=== PATIENT | male | born 1980 | race Two or more races ===

== ENCOUNTER 2016-06-29 06:32 | Inpatient (IN) | payer MEDICAID ==
[~2016-06-29] VITALS: Ht 188 cm; Wt 88.5 kg
[2016-06-29] MEDS ORDERED: LIDOCAINE 2% JEL UROJET 10 ML MM ONE ×3 (06:38→07:00)
--- NOTE | 2016-06-29 06:40 | NUR ---
To bed 7 a 36 yo male bibra and lapd with c/o overdose. Per ems report, mom called 911 cause patient was banging on the windows, shouting, unable to be directed. Per mom, patient took meth and 5 pills of her carbamazepine 300mg tablets. Upon arrival, patient is lethargic, vomiting, no sob. Breathing even and unlabored. NSR on tele. VSS. Skin warm and dry. Safety measures initiated. Gowned. Placed on sign manufacturer. Awaiting for er md.
--- NOTE | 2016-06-29 06:45 | NUR ---
started a saline lock on the right ac g16, blood drawn and sent to lab.
[2016-06-29] MEDS ORDERED: ONDANSETRON HCL/PF 4 MG/2 ML VIAL ONE (06:47)
[2016-06-29 06:57] LABS: BASOPHILS % (AUTO) 0.6 % (0.0-2.0); EOSINOPHILS # (AUTO) 0.1 /CMM (0.0-0.7); EOSINOPHILS % (AUTO) 1.2 % (0.0-6.0); HEMATOCRIT 46 % (39-51); HEMOGLOBIN 15.6 g/dL (13.5-17.5); LYMPHOCYTES # (AUTO) 1.9 /CMM (0.8-4.8); MEAN CORPUSCULAR HEMOGLOBIN 28 PG (26.0-33.0); MEAN CORPUSCULAR HGB CONC 34 g/dl (31.0-36.0); MEAN CORPUSCULAR VOLUME 82 fL (80-96); MONOCYTES # (AUTO) 0.3 /CMM (0.1-1.30); MONOCYTES % (AUTO) 4.4 % (2.0-12.0); NEUTROPHILS # (AUTO) 4.6 /CMM (1.8-8.9); NEUTROPHILS % (AUTO) 66.8 % (43.0-81.0); PLATELET COUNT (AUTO) 276 /CMM (150-450); RDW COEFFICIENT OF VARIATION 12.7 (11.5-15.0); RED BLOOD CELL COUNT(AUTO) 5.56 MIL/uL (4.5-6.0)
[2016-06-29] MEDS ORDERED: ONDANSETRON HCL/PF - ER 4 MG/2 ML VIAL IV ONE (07:00)
--- NOTE | 2016-06-29 07:20 | NUR ---
Urine sample collected via straight cath, 200cc orange colored clear urine noted. Called lab for pickup.
[2016-06-29 07:35] LABS: ALANINE AMINOTRANSFERASE 19 U/L (12-78); ALBUMIN 4.2 g/dL (3.4-5.0); ALCOHOL, BLOOD 179 mg/dL (0-0); ALKALINE PHOSPHATASE 68 U/L (46-116); ASPARTATE AMINOTRANSFERASE 14 U/L (15-37); BILIRUBIN,DIRECT 0.1 mg/dL (0.0-0.2); BILIRUBIN,TOTAL 0.6 mg/dL (0.2-1.0); CALCIUM, SERUM 8.6 mg/dL (8.5-10.1); CARBON DIOXIDE 22 mmol/L (21-32); CHLORIDE 107 mmol/L (98-107); CREATININE 1.2 mg/dL (0.6-1.3); GFR 69 mL/min (>60); GLUCOSE 102 mg/dL (74-106); POTASSIUM 3.4 mmol/L (3.5-5.1); SODIUM SERUM 144 mmol/L (136-145); TOTAL PROTEIN, SERUM 7.3 g/dL (6.4-8.2); UREA NITROGEN, BLOOD 16 mg/dL (7-18)
[2016-06-29 07:36] LABS: APPEARANCE,URINE SL CLOUDY (CLEAR); BILIRUBIN,URINE NEGATIVE (NEGATIVE); BLOOD, URINE 3+ Ery/uL (NEGATIVE); COLOR,URINE YELLOW (YELLOW); KETONES,URINE NEGATIVE (NEGATIVE); LEUKOCYTE ESTERASE ,URINE NEGATIVE (NEGATIVE); NITRITE, URINE NEGATIVE (NEGATIVE); PROTEIN,URINE 2+ mg/dl (NEGATIVE); UGLUCOSE NEGATIVE (NEGATIVE); UROBILINOGEN,URINE 0.2 EU/dL (0.2)
[2016-06-29 07:37] LABS: ACETAMINOPHEN < 10 ug/ml (10-30); SALICYLATE 0.8 mg/dL (2.8-20.0)
[2016-06-29 07:42] LABS: ADD URINE CULTURE NO; BACTERIA,URINE None seen /HPF (None Seen); FINE GRANULAR CASTS,URINE OCC /LPF (None Seen); MUCUS,URINE Few /LPF (None Seen); RBC,URINE 21-50 /HPF (0-2); URINE AMORPHOUS URATE Few /HPF (None Seen); WBC,URINE 0-2 /HPF (0-3)
[2016-06-29 07:48] LABS: PHENCYCLIDINE SCREEN,URINE NEGATIVE (NEGATIVE)
[2016-06-29 07:50] LABS: CANNABINOID, URINE POSITIVE (NEGATIVE)
--- NOTE | 2016-06-29 08:16 | NUR ---
CALLED POISON CONTROL REPORTED OVERDOSE OF CARBAMAZEPINE. PER POISON CONTROL RECHECK CARBAMAZEPINE RATE AFTER 3-4 HOURS SINCE ITS SLOW EFFECT. IF THERE IS SEIZURE TREAT WITH BENZODIAZEPINE. IF QRS 120 TREAT WITH BICARBONATE. UPDATED MD MADE AWARE.
[2016-06-29] MEDS ORDERED: ACETAMINOPHEN ES 500 MG TABLET ONE (08:24)
[2016-06-29] MEDS ORDERED: ACETAMINOPHEN ES 500 MG TABLET PO ONE (08:30)
--- NOTE | 2016-06-29 08:32 | NUR ---
PT AROUSABLE BUT LETHARGIC . NOT ABLE TO GIVE PO TYLENOL. MADE AWARE.
--- NOTE | 2016-06-29 11:24 | NUR ---
SORAIDA FROM POISON CONTROL CALLED BACK . UPDATED ON PATIENTS CONDITION. WANTS TO RECHECK CARBAMAZEPINE LEVEL IN 3-4 HOURS. CURRENT LEVEL 6.4 Addendum: 06/29/16 at 1124 by NICOLASA MD KEE AWARE
[2016-06-29] MEDS ORDERED: ZOLPIDEM TARTRATE 5 MG TABLET PO PRN (14:30)
[2016-06-29] MEDS ORDERED: HYDROCODONE/APAP 5/325MG 1 EACH TABLET PO PRN (14:30)
[2016-06-29] MEDS ORDERED: IV NS 0.9% 1,000 ML IV ONE (14:30)
[2016-06-29] MEDS ORDERED: MAG HYDROX/AL HYDROX/SIMETH 30 ML UDC PO PRN (14:30)
[2016-06-29] MEDS ORDERED: Z GUARD REMEDY 2 OZ OINT TP PRN (14:30)
[2016-06-29] MEDS ORDERED: ONDANSETRON HCL/PF 4 MG/2 ML VIAL IVP PRN (14:30)
[2016-06-29] MEDS ORDERED: MAGNESIUM HYDROXIDE 30 ML UDC PO PRN (14:30)
[2016-06-29] MEDS ORDERED: ACETAMINOPHEN 325 MG TABLET PO PRN (14:30)
--- NOTE | 2016-06-29 14:36 | NUR ---
PT GOING TO TELE ROOM 310-1
--- NOTE | 2016-06-29 14:56 | NUR ---
GAVE REPORT TO SEAN JARAMILLOFLANGER ROOM 310-1 . PSYCH EVAL AT BEDSIDE.
--- NOTE | 2016-06-29 15:49 | NUR ---
INFORMED NURSING SUP. OF 5150 HOLD, SHE SAID SHE HAS A SITTER
[2016-06-29] MEDS ORDERED: IV SET PRIMARY PUMP SET 1 EA INFUS.SET MC ONE (16:01)
[2016-06-29] MEDS ORDERED: SET RED CAP 1 EA INFUS.SET MC ONE (16:02)
[2016-06-29] MEDS ORDERED: SECONDARY IV SET 1 EA INFUS.SET MC ONE (16:02)
[2016-06-29] MEDS: POTASSIUM CL. PREMIX PERIPHER. 50 ML IV SCH ×2 (16:11→17:40)
--- NOTE | 2016-06-29 16:45 | NUR ---
RN NOTES ADMISSION RECEIVED REPORT FROM RN. RECEIVED PATIENT TO TELEMETRY AT 1600. PATIENT IS SLEEPY BUT AWAKEN TO CALLING HIS NAME/ PATIENT IS ORIENTED TO NAME, TIME AND PLACE. RECEIVED NEW ORDERS AND DIET FROM DR LANDIN. ORDERS CARRIED OUT. PICTURE OF RIGHT HAND WAS TAKEN AND PLACED IN THE CHART. IV SITE IS POTENT AND INTACT. NO SIGNS OR SYMPTOMS OF DISTRESS. PATIENT DENIED PAIN. VITAL SIGNS ARE STABLE: BLOOD PRESSURE 118/77 AND HR 86. PATIENT IS PLACED ON 5150 DANGER TO HIMSELF, 5150 STARTED 06/30/16 AT 1530 AND WILL ON 07/02/2016 AT 1530. PSYCH CONSULT IS ON THE CASE. 1:1 SITTER. WILL CONTINUE TO ASSESS AND MONITOR PATIENT THROUGH OUT MY SHIFT.
--- NOTE | 2016-06-29 18:37 | NUR ---
RN CLOSING NOTES PATIENT IS AWAKE AND ORIENTED TO NAME, TIME AND PLACE. IV SITE IS POTENT AND INTACT, NS AT 125ML/HR IS CURRENTLY RUNNING. NO SIGNS OR SYMPTOMS OF DISTRESS. PATIENT DENIED PAIN. VITAL SIGNS ARE STABLE. PATIENT IS ON 5150 DANGER TO HIMSELF, 5150 STARTED 06/30/16 AT 1530 AND WILL ON 07/02/2016 AT 1530. PSYCH CONSULT IS ON THE CASE. 1:1 SITTER. BED IS IN LOW POSITION, LOCKED AND TWO SIDE RAILS ARE UP. WILL ENDORSE TO KATELIN SHIFT NURSE.
--- NOTE | 2016-06-29 19:30 | NUR ---
AUTOMATIC BRINE MIXER OPERATOR INITIAL NOTES: RECEIVED REPORT FROM DAY RN JO. PT ON BED, SLEEPING, AROUSES TO TACTILE STIMULI, ON 2L VIA NC, RESPIRATION EVEN AND UNLABORED. ON SINUS RHYTHM HR 86. 1:1 SITTER AT BED SIDE. PT ON 5150 HOLD ON 07/02/16 AT 1530. PT DENIES ANY PAIN OR DISCOMFORT, DENIES ANY PLAN OF HURTING HIMSELF AT THIS TIME, NO ACTIVE PLAN STATED. RIGHT AC IV ACCESS PATENT AND FLUSHING WELL, INFUSING WITH NS AT 125 ML/HR. SAFETY PRECAUTIONS FOR FALL INITIATED, CALL LIGHT IN REACH, WILL CONTINUE TO MONITOR
[2016-06-29 19:36] VITALS: BP 126/72
[2016-06-29 20:00] VITALS: BP 126/72
--- NOTE | 2016-06-29 21:29 | NUR ---
SCIENCE INSTRUCTOR NOTES: RECEIVED CALL FROM POISON CONTROL CENTER, HOWEVER LINE/FRAMING SPECIALIST SEEMS BAD THAT IT CUT THE CALL, INFORMED NATURAL GAS INSPECTOR, AWAITING FOR POISON CENTER TO CALL BACK
[2016-06-30] VITALS (7 sets, daily range): BP systolic 108–126; BP diastolic 53–81
[2016-06-30 06:24] LABS: BASOPHILS % (AUTO) 0.7 % (0.0-2.0); EOSINOPHILS # (AUTO) 0.2 /CMM (0.0-0.7); EOSINOPHILS % (AUTO) 2.2 % (0.0-6.0); HEMATOCRIT 41 % (39-51); HEMOGLOBIN 13.9 g/dL (13.5-17.5); LYMPHOCYTES # (AUTO) 2.5 /CMM (0.8-4.8); LYMPHOCYTES % (AUTO) 35.3 % (20.0-44.0); MEAN CORPUSCULAR HEMOGLOBIN 29 PG (26.0-33.0); MEAN CORPUSCULAR HGB CONC 34 g/dl (31.0-36.0); MEAN CORPUSCULAR VOLUME 83 fL (80-96); MONOCYTES # (AUTO) 0.4 /CMM (0.1-1.30); MONOCYTES % (AUTO) 6.2 % (2.0-12.0); NEUTROPHILS # (AUTO) 3.9 /CMM (1.8-8.9); NEUTROPHILS % (AUTO) 55.6 % (43.0-81.0); PLATELET COUNT (AUTO) 239 /CMM (150-450); RDW COEFFICIENT OF VARIATION 12.8 (11.5-15.0); RED BLOOD CELL COUNT(AUTO) 4.89 MIL/uL (4.5-6.0); WHITE BLOOD COUNT (AUTO) 7.1 K/uL (4.3-11.0)
--- NOTE | 2016-06-30 06:45 | NUR ---
telecommunications line installer closing notes: pt on bed, sleeping, arouses to tactile stimuli, pt remains passive and isolative hence calm, 1:1 sitter at bed side, no sob noted, remains on 2l via nc. on sinus rhythm hr 68. pt denies any plan of hurting himself, most of the time he's sleeping. iv access remains patent and flushing well, on hl. vs remains stable, needs attended. safety precaution for fall remains engaged, call light in reach. will endorse to day rn for juan pablo.
[2016-06-30 06:52] LABS: CREATININE 0.9 mg/dL (0.6-1.3); MAGNESIUM 1.9 mg/dL (1.8-2.4); PHOSPHORUS 3.7 mg/dL (2.5-4.9); POTASSIUM 3.8 mmol/L (3.5-5.1)
--- NOTE | 2016-06-30 07:30 | NUR ---
tele manager contact: initial assessment received pt in bed asleep, but easily arousable. pt remains on 5150 hold. sitter at bedside. no s/s of discomfort. call light within reach. will continue to monitor.
--- NOTE | 2016-06-30 08:00 | NUR ---
tele director of field service: notes lab called re: tegretol level=15.0. dr. redmond here and aware.
--- NOTE | 2016-06-30 09:00 | NUR ---
m/s revenue inspector: md visit tele removed as ordered. pt awaken, seen and examined by dr. redmond with verbal order to do tegretol level every 4 hours and start ivf ns at 125ml/hr. order carried out and acknowledged. breakfast served. md aware of tegretol level today= 15.0.
[2016-06-30] MEDS ORDERED: IV NS 0.9% 1,000 ML BAG IV PRN (09:30)
[2016-06-30] MEDS ORDERED: IV SET PRIMARY PUMP SET 1 EA INFUS.SET MC ONE (10:07)
[2016-06-30] MEDS: IV NS 0.9% 1,000 ML IV PRN (10:12)
--- NOTE | 2016-06-30 11:00 | NUR ---
m/s wireless watcher: notes sounds asleep at this time. sitter at bedside. will monitor.
--- NOTE | 2016-06-30 12:00 | NUR ---
m/s digital camera technician: notes poison control called and spoke to manny (miguel) and updated tegretol level and pt condition.
--- NOTE | 2016-06-30 13:45 | NUR ---
m/s customs verifier: psych f/u seen by dr. roberts with order to d'c 5150. chris barksdale made aware, spoke to juan pablo. pt needs to sign voluntary per psychiatrist.
--- NOTE | 2016-06-30 14:00 | NUR ---
m/s weekend caregiver: notes pt awaken for blood draw. pt denies si/hi at this time. informed pt that hold has been discontinued. pt will sign voluntary as stated. awaiting form from geropsych unit. continue on ivf, infusing well. will continue to monitor.
--- NOTE | 2016-06-30 14:10 | NUR ---
m/s propagation worker: notes cathie (social media content specialist) at bedside to get information. pt refused to be admitted to psych [facility] and will not sign voluntary. cn made aware. will continue to monitor.
--- NOTE | 2016-06-30 14:14 | NUR ---
[facility] Per crisis team report by RN Danielle, per Mother pt stating that he wanted "to " while banging on the windows with his fists (pt with multiple abrasions on both hands), pt also ingested "5 carbamazepine pills and took meth". Upon arrival pt with pressured speech and believed that people were after him. Pt was uncooperative with ED staff and refused to answer any questions with this documentation writer. Unable to contract for safety. Pt with hx of bipolar disorder. Pt. was placed on a 5150 hold for DTS. MAGEN met with pt. bedside. Pt's RN Damien was bedside as well. Pt. had his eyes closed throughout the entire assessment. Pt. was somewhat guarded and affect was blunted. Pt. lives at [address] [place] [address] in [place] with his parents. 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 Pt. drinks alcohol socially and uses methamphetamines every other day. Pt. has been using methamphetamines for the past two and a half years. Pt. has no history of drug treatment programs. Pt. denies psychiatric hospitalizations and states this was his first suicidal attempt. Pt. denied having any psychiatric illnesses, however the crisis team report states pt. has a history of Bipolar. Pt. is a cigarette smoker and smokes 2 to 4 cigarettes per day. Pt. is currently denying suicidal and homicidal ideations and visual/auditory hallucinations. Pt. would like to return back home upon discharge. Pt. declined drug and alcohol resources that were offered to him. Patient requesting no other social service needs at this time and social work professor will re-assess if necessary. MAGEN consulted with MELISSA Muniz who informed MAGEN that Dr. Ragsdale (psychiatrist) has discontinued the 5150 hold.
--- NOTE | 2016-06-30 15:25 | NUR ---
m/s photo lab specialist: notes report given to manny (rn) for continuity of care.
--- NOTE | 2016-06-30 16:00 | NUR ---
MS RN ON BED,NO DISTRESS NOTED.
--- NOTE | 2016-06-30 18:51 | NUR ---
ms rn on bed,no distress noted,all needs attended.
--- NOTE | 2016-06-30 19:30 | NUR ---
MS RN NOTE PATIENT STABLE. NO REPORTS OF PAIN OR DISTRESS AT THIS TIME. NO S/S OF SUICIDAL IDEATION. PATIENT RESTING COMFORTABLY IN BED. IV SITE TO RAC INTACT, WITH NO REDNESS OF SWELLING NOTED AT SITE. BED LOCKED AND IN LOWEST POSITIO. SIDE RAILS UP, CALL LIGHT WITHIN REACH. WILL CONTINUE TO MONITOR.
--- NOTE | 2016-06-30 22:03 | NUR ---
MS RN NOTE ENDORSED TO [facility] FOR EVE.
--- NOTE | 2016-06-30 22:28 | NUR ---
MS/RN NOTES RECEIVED REPORT FROM [facility]. RECEIVED PT. LYING IN BED. BREATHING EVEN AND UNLABORED ON ROOM AIR. NO SOB, RESPIRATORY DISTRESS OR COMPLAINTS OF PAIN. PT. EASILY AROUSABLE TO NAME. NO S/S OF SUICIDAL IDEATION. BED IN LOWEST POSITION, CALL LIGHT WITHIN REACH, WILL CONTINUE TO MONITOR.
[2016-07-01] MEDS: IV NS 0.9% 1,000 ML IV PRN ×2 (05:38→16:31)
--- NOTE | 2016-07-01 06:33 | NUR ---
MS/RN NOTES PT. LYING IN BED RESTING. BREATHING EVEN AND UNLABORED ON ROOM AIR. NO SOB, RESPIRATORY DISTRESS OR COMPLAINTS OF PAIN. NO S/S OF SUICIDAL IDEATION AT THIS TIME AND THROUGHOUT SHIFT. PT. WITH RIGHT AC 18 GAUGE PERIPHERAL IV PRESENT, PATENT AND INTACT ADMINISTERING TO PT. NS @ 125ML/HR. ALL PT. NEEDS MET. BED IN LOWEST POSITION, CALL LIGHT WITHIN REACH, WILL ENDORSE TO DAYSHIFT NURSE FOR CONTINUITY OF CARE.
[2016-07-01 06:52] LABS: CALCIUM, SERUM 8.3 mg/dL (8.5-10.1); CREATININE 0.9 mg/dL (0.6-1.3)
--- NOTE | 2016-07-01 07:21 | NUR ---
RN AM NOTES RECEIVED PATIENT AWAKE, ALERT AND ORIENTED X4. NO SUICIDAL THOUGHTS OR IDEATION AT THIS TIME. AMBULATORY, ABLE TO USE RESTROOM AND TRANSFER INDEPENDENTLY. INDEPENDENT FOR ADL'S. TOLERATING IV INFUSION WELL. WILL CONTINUE TO MONITOR.
[2016-07-01 08:00] VITALS: BP 107/74
[2016-07-01 08:14] LABS: CARBAMAZEPINE (TEGRETOL) 11.4 ug/ml (4-11.9)
--- NOTE | 2016-07-01 11:00 | NUR ---
POISON CONTROL CENTER CALLED FOR CARBAMAZEPINE LEVELS TO BE VERIFIED, VERIFIED MOST RECENT RESULT AT 11.1, TRENDING DOWN. PATIENT IN STABLE CONDITION. WILL CONTINUE TO MONITOR.
--- NOTE | 2016-07-01 15:20 | NUR ---
PATIENT REQUESTED TO BE TESTED FOR HIV AND HERPES BECAUSE HE HAS HAD AT LEAST 2 OR 3 QUESTIONABLE SEXUAL PARTNERS OVER THE PAST 5 YEARS AND MULTIPLE OTHER SEXUAL PARTNERS WHILE UNDER THE INFLUENCE OF DRUGS HE CANNOT REMEMBER. PATIENT STATES THAT HE HAS NOT BEEN TESTED IN A FEW YEARS. PATIENT DENIES IV DRUG USE. MD AWARE AND ORDERED TESTS. WILL CONTINUE TO MONITOR.
[2016-07-01 16:00] VITALS: BP 129/69
--- NOTE | 2016-07-01 18:14 | NUR ---
RN PM NOTES PATIENT RESTING IN BED, ASLEEP, BUT AROUSABLE. TOLERATED MEALS AND IV INFUSION WELL. NO SOB OR DISTRESS NOTED. DENIES PAIN. WILL ENDORSE TO NEXT SHIFT.
--- NOTE | 2016-07-01 19:27 | NUR ---
MS/RN OPENING NOTES RECEIVED PATIENT IN BED, ASLEEP BUT NO S/S OF DISTRESS OR DISCOMFORT.CALL LIGHTS WITHIN REACH. WATER PITCHER AT BEDSIDE. WILL CONTINUE TO PROVIDE CARE.
[2016-07-01 20:00] VITALS: BP 129/69
--- NOTE | 2016-07-01 20:27 | NUR ---
MS/RN NOTES PATIENT AWAKE. ABLE TO RESPOND AND COOPERATIVE TO CARE. FAMILY CAME FOR VISIT AND BROUGHT FOOD.
[2016-07-02] MEDS: IV NS 0.9% 1,000 ML IV PRN ×3 (00:23→20:25)
--- NOTE | 2016-07-02 06:02 | NUR ---
MS/RN CLOSING NOTES PATIENT IN BED, ABLE TO SLEEP DURING THE NIGHT AND AWAKEN WHEN NEED TO GO TO BATHROOM. ABLE TO ASK FOR HELP AT ALL TIMES. NO S/S OF SOB OR DISTRESS. ABLE TO DO SELF CARE AND INQUIRED ABOUT TAKING SHOWER IN AM. PROVIDED SNACKS AND IV SITE ON LEFT AC W/ NO S/S OF INFILTRATION. SAFETY INSTRUCTIONS PROVIDED. PATIENT VERBALIZED UNDERSTANDING. WILL ENDORSE TO AM RN FOR EVE.
--- NOTE | 2016-07-02 07:58 | NUR ---
RN AM NOTES RECEIVED PATIENT ASLEEP IN BED, EASILY AROUSABLE, ALERT AND ORIENTED X3 WITH NO SUICIDAL IDEATION. OFFERED SHOWER, SAYS HE WILL SHOWER AFTER BREAKFAST, HE HAD A SPONGE BATH LAST NIGHT. PIV FLUIDS RUNNING WELL, TOLERATING IV INFUSION WELL, CARBAMEZAPINE LEVELS STILL FLUCTUATING, UP AT 12.2 AT THIS TIME. WILL CONTINUE TO MONITOR.
[2016-07-02 08:00] VITALS: BP 111/70
[2016-07-02 16:00] VITALS: BP 116/74
--- NOTE | 2016-07-02 18:54 | NUR ---
RN PM NOTES PATIENT IN STABLE CONDITION, RESTING IN BED AFTER DINNER. EASILY AROUSABLE. TOLERATED INFUSION AND MEALS WELL. LABS Q 4 TO CHECK CARBAMAZEPINE LEVELS BELOW 7.3. CALL MD TOMORROW AM WITH UPDATE, CARBAMAZEPINE LEVELS TRENDING DOWN, MAY POSSIBLY DISCHARGE. WILL ENDORSE TO NEXT SHIFT.
--- NOTE | 2016-07-02 19:21 | NUR ---
MS/RN OPENING NOTES' RECEIVED PATIENT IN BED, ASLEEP BUT EASILY AROUSABLE NO S/S OF DISTRESS OR DISCOMFORT. CALL LIGHTS WITHIN REACH. WILL CONTINUE PLAN OF CARE.
[2016-07-02 20:00] VITALS: BP 132/80
[2016-07-03] MEDS: IV NS 0.9% 1,000 ML IV PRN (05:07)
--- NOTE | 2016-07-03 06:11 | NUR ---
MS/RN CLOSING NOTES PATIENT IS ALERT, X4. ABLE TO SLEEP DURING THE NIGHT AND ABLE TO GO TO BATHROOM BY INFORMING NURSES FOR SAFETY. IV FLUIDS RUNNING ON RIGHT AC SITE W/NO S/S OF INFILTRATION. PROVIDE FLUIDS.ABLE TO VERBALIZE NEEDS. CALL LIGHTS WITHIN REACH.
--- NOTE | 2016-07-03 07:00 | NUR ---
MS/RN AM NOTES RECEIVED PATIENT IN BD, AWAKE, WITHOUT SOB, ON RA TOLERATING WELL. BED IN LOW POSITION, WITH 2SR UP FOR SAFETY. IV LINE INTACT ON RIGHT HAND, NO S/SX INFLAMMATION, DENIES PAIN, KEPT COMFORTABLE, NEEDS MET, WITH CALL LIGHT WITHIN EASY REACH, WILL CONTINUE TO MONITOR ACCORDINGLY.
[2016-07-03 08:00] VITALS: BP 124/78
--- NOTE | 2016-07-03 11:30 | NUR ---
D/C PATIENT HOME IN STABLE CONDITION. REFUSED TEGRETOL 11:00 LAB, AWARE. WALKED OUT FROM THE HOSPITAL WITH FAMILY MEMBER, WITH HIS BELONGINGS, EXCEPT SHOE LACES, AND BELT. DISCHARGE CARE INSTRUCTION EXPLAINED, VERBALIZED UNDERSTANDING. ENCOURAGED TO F/U WITH PRIMARY PHYSICIAN WITHIN A WEEK
[2016-07-04 08:41] LABS: HSV 1 IgG, TYPE SPECIFIC <0.91 index (0.00-0.90); HSV 2 IgG, TYPE SPECIFIC <0.91 index (0.00-0.90)
== END 2016-07-03 11:30 | disposition home or self-care (01) | DRG 812 ==
LOC: ER 06:36 → TELE 14:47 → MED 06-30 08:42
PROVIDERS: ADMIT Family Medicine; ATTEND Family Medicine
DX: T42.1X1A Poisoning by iminostilbenes, accidental (unintentional), initial encounter (principal); F31.9 Bipolar disorder, unspecified; F15.10 Other stimulant abuse, uncomplicated; E87.6 Hypokalemia; Y92.009 Unspecified place in unspecified non-institutional (private) residence as the place of occurrence of the external cause; F17.210 Nicotine dependence, cigarettes, uncomplicated; Y92.9 Unspecified place or not applicable; F39 Unspecified mood [affective] disorder
CPT/HCPCS: 36415; 80048-TC; 80061-TC; 80076-TC; 80156-TC; 80305; 81000-TC; 82962-TC; 83735-TC; 84100-TC; 85025-TC; 86695; 86696; 86701; 87081-TC; 94799-TC; A4606; G0480; G6039-TC; J2405; J3480; J3490; J7030; Z7610